=== PATIENT | female | born 1960 | race Caucasian/White ===

== ENCOUNTER 2016-12-03 15:43 | Outpatient (CLI) | payer OTHER ==
--- NOTE | 2016-12-03 17:19 | Diagnostic Imaging Report ---
[facility] [address] [facility].[address] [address] Report Submission Date: Dec 03, 2016 5:00:30 PM CDT Patient Study Name: LACHO KAPLAN Date: Dec 03, 2016 3:52:41 PM CDT Modality Type: US Gender: F Description: US THYROID SOFT TISS HEAD/NCK : 56 Institution: [facility] Physician: VALENCIA GILL - OP Examination: Ultrasound thyroid History: Thyroid nodule. History of right thyroidectomy. Comparison exams: None available Findings: Left thyroid lobe measures 5.9 x 4.2 x 2.4 cm. Diffuse inhomogeneous echogenicity. Scattered nodules centrally. Largest is within the inferior margin measuring 2.2 x 1.5 x 1.1 cm: solid/cystic characteristics centrally. Centrally is a solid nodule measuring 1 cm maximally. No definite thyroid tissue within the right thyroid bed. Isthmus measures 4.9 mm Impression: Left thyroid nodules as described. Correlation with previous exams recommended to determine if there has been any interval change. Correlate with any biopsies if obtained. Electronically signed on Dec 03, 2016 5:00:30 PM CDT by: Chay MORALES
== END 2016-12-03 15:44 ==
LOC: RAD 15:43
PROVIDERS: ATTEND Family Medicine
DX: E04.1 Nontoxic single thyroid nodule (principal); R13.10 Dysphagia, unspecified
CPT/HCPCS: 76536

== ENCOUNTER 2017-12-16 08:32 | Outpatient (CLI) | payer OTHER ==
--- NOTE | 2017-12-16 14:18 | Diagnostic Imaging Report ---
[facility] [address] [facility].[address] [id number] Report Submission Date: Dec 16, 2017 1:59:41 PM CDT Patient Study Name: LACHO KAPLAN Date: Dec 16, 2017 8:51:06 AM CDT Modality Type: US Gender: F Description: : 56 Institution: [facility] Physician: VALENCIA GILL Examination: Ultrasound thyroid History: thyroid partial rt throectomy Comparison exams: None available Findings: Right thyroid lobe surgically removed. Left thyroid lobe measures 4.1 x 1.4 x 2.7 cm. Diffuse inhomogeneous echogenicity bilaterally. Numerous nodular densities centrally. Largest measures 1.6 cm maximally. Isthmus measuring 7.8 mm with nodular density centrally. 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 Electronically signed on Dec 16, 2017 1:59:41 PM CDT by: Chay MORALES
--- NOTE | 2017-12-16 14:18 | Diagnostic Imaging Report ---
[facility] [id number] [facility].[address] [address] Report Submission Date: Dec 16, 2017 1:59:41 PM CDT Patient Study Name: LACHO KAPLAN Date: Dec 16, 2017 8:51:06 AM CDT Modality Type: US Gender: F Description: : 56 Institution: [facility] Physician: VALENCIA GILL Examination: Ultrasound thyroid History: thyroid partial rt throectomy Comparison exams: None available Findings: Right thyroid lobe surgically removed. Left thyroid lobe measures 4.1 x 1.4 x 2.7 cm. Diffuse inhomogeneous echogenicity bilaterally. Numerous nodular densities centrally. Largest measures 1.6 cm maximally. Isthmus measuring 7.8 mm with nodular density centrally. 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 Electronically signed on Dec 16, 2017 1:59:41 PM CDT by: Chay MORALES
== END 2017-12-16 13:53 ==
LOC: RAD 08:32
PROVIDERS: ATTEND Family Medicine
DX: E04.9 Nontoxic goiter, unspecified (principal); R22.32 Localized swelling, mass and lump, left upper limb; E07.9 Disorder of thyroid, unspecified
CPT/HCPCS: 36415; 76536; 76882; 84439; 84443; 84481; 86376; 86800

== ENCOUNTER 2018-05-11 15:43 | Outpatient (CLI) | payer OTHER ==
--- NOTE | 2018-05-11 16:05 | Diagnostic Imaging Report ---
VALENCIA GILL [facility] [address] [facility] [address] [address] Report Submission Date: May 11, 2018 4:04:17 PM NETWORK ASSOCIATE Patient Study Name: LACHO KAPLAN Date: May 11, 2018 3:41:20 PM NETWORK ASSOCIATE Modality Type: DX Gender: F Description: CHEST : 56 Institution: [facility] Physician: VALENCIA GILL PA and lateral chest History: Recent pneumonia. Sharp pain under the left breast PA and lateral chest dated May 11, 2018 demonstrates a small density in the retrocardiac region, likely a small hiatal hernia. Heart size is normal. Pulmonary vascularity is normal. There is no confluent infiltrate or pleural effusion. Impression: Small density in the retrocardiac region, likely a small hiatal hernia. Chest CT could be obtained for further evaluation in this regard. Otherwise, no active disease. Electronically signed on May 11, 2018 4:04:17 PM NETWORK ASSOCIATE by: Willa MORALES
== END 2018-05-11 15:44 ==
LOC: RAD 15:43
PROVIDERS: ATTEND Family Medicine
DX: R07.1 Chest pain on breathing (principal)
CPT/HCPCS: 71046